=== PATIENT | male | born 1975 | race Caucasian/White ===

== ENCOUNTER 2020-04-15 23:02 | Emergency (ER) | payer OTHER ==
[~2020-04-15] VITALS: Ht 177.8 cm; Wt 88.9 kg
--- NOTE | 2020-04-15 23:49 | Emergency Department Note ---
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 Pt states that the frequent urge to urinate started earlier in the day, but that the abdominal pain became severe a few hours before presentation. He denies any dysuria, penile discharge, f/c/n/v. He states that he had a "normal BM" earlier this evening, without blood or mucous. He states that he had similar pain "year ago," that was thought to be due to a "stomach bug." Pt denies any history of kidney stones. He denies any travel or known sick contacts. 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: No Onset (how long ago): hour(s) (2.5) Location: mid-abdomen, and periumbilical area Quality: sharp, stabbing, tight Radiation: abdomen (pain is centrally located, and then radiates all over the abdomen) Severity: severe Onset quality: sudden Duration (how long): hour(s) (2.5 hours ago) Timing of current episode: constant Progression: waxing and waning Chronicity: new Relieving factors: none Exacerbating factors: none Associated symptoms: denies other symptoms (no cp, tightness, heaviness, or SOB.) Treatments prior to arrival: none Risk factors: ASCVD, Past Medical/Family History Physician Review I have reviewed the patient's past medical and family history. Any updates have been documented here. Past Medical History Recent Fever: No Clinical Suspicion of Infectio: No New/Unexplained Change in Ment: No Past Medical History: Hypertension, CAD (s/p stent placement x 1, at age 31 years. ), Hyperlipedemia Other Medical History: HIV - dx in 2002, well controlled on daily meds. Past Surgical History: None Social History Smoking Cessation: Current every day smoker Alcohol Use: Occasional Any Illegal Drug Use: Yes TB Exposure/Symptoms: No Physically hurt or threatened: No Family History Family history of heart diseas: Yes Other Any Pre-Existing Lines (PICC,: No Is patient up to date on immun: Yes Review of Systems Review of Systems Constitutional: no symptoms EENTM: no symptoms Cardiovascular: no symptoms Respiratory: no symptoms Gastrointestinal: abdominal pain, nausea Genitourinary: frequency Musculoskeletal: no symptoms Neurological: no symptoms Psychological: no symptoms Endocrine: no symptoms Hematological/Lymphatic: no symptoms Review of other systems All other systems reviewed and negative. Physical Exam Related Data Allergies: Coded Allergies: No Known Allergies (Unverified , 04/16/20) Vital signs reviewed: Yes Physical Exam CONSTITUTIONAL Constitutional: well-developed, well-nourished HENT HENT: normocephalic, atraumatic, oropharynx clear/moist, nose normal HENT L/R: left ext ear normal, right ext ear normal EYES Eyes: PERRL, conjunctivae normal NECK Neck: ROM normal PULMONARY Pulmonary: effort normal, breath sounds normal CARDIOVASCULAR Cardiovascular: regular rhythm, heart sounds normal, capillary refill normal, normal rate GASTROINTESTINAL Abdominal: soft, tender (diffuse, mild tenderness without rebound or guarding) GENITOURINARY Genitourinary: exam deferred SKIN Skin: warm, dry MUSCULOSKELETAL Musculoskeletal: ROM normal NEUROLOGICAL Neurological: alert, oriented x 3, no gross motor or sensory deficits PSYCHOLOGICAL Psychological: mood/affect normal, judgement normal Results Laboratory Lab results reviewed: Yes Laboratory comments CBC - nl except for WBC = 11.2 and platelets = 95 CMP - nl Liver profile - nl, including normal Amylase. UA - negative, except for moderate blood Imaging Imaging results reviewed: Yes Impressions [place] [id number] Patient Name: LEIGHA ROD MR #: [id number] : 1975 Age/Sex: 44/M Req #: [id number] Adm Physician: Ordered by: MARYSE LEO MD Report #: [id number] Location: [facility] Room/Bed: Procedure: [id number] HOPD/CT ABD/PEL WITH CONTRAST-HOPD Exam Date: 04/16/20 Exam Time: 50 REPORT STATUS: Signed EXAM: CT Abdomen and Pelvis WITH contrast INDICATION: Mid abdominal pain, nausea COMPARISON: None. TECHNIQUE: Abdomen and pelvis were scanned utilizing a multidetector helical scanner from the lung base to the pubic symphysis after administration of IV contrast. Coronal and sagittal reformations were obtained. Routine protocol was performed. Scan was performed when during portal venous phase. IV CONTRAST: 100 mL of Isovue 370 ORAL CONTRAST: None COMPLICATIONS: None RADIATION DOSE: Total DLP: 839 mGy*cm Estimated effective dose: (DLP x 0.015 x size factor) mSv CTDIvol has been reviewed. It is below the limits set by the Radiation Protocol Committee (RPC). Dose modulation, iterative reconstruction, and/or weight based adjustment of the mA/kV was utilized to reduce the radiation dose to as low as reasonably achievable. FINDINGS: LINES and TUBES: None. LOWER THORAX: Triple vessel coronary artery hyperdensities. HEPATOBILIARY: Hypodense liver relative to the spleen. No focal hepatic lesions. No biliary ductal dilation. GALLBLADDER: No radio-opaque stones or sludge. No wall thickening. SPLEEN: No splenomegaly. PANCREAS: No focal masses or ductal dilatation. ADRENALS: No adrenal nodules KIDNEYS/URETERS: Kidneys enhance symmetrically. No hydronephrosis. No cystic or solid mass lesions. Mild right ureterectasis, urothelial containing, and periureteral stranding. No stones. GI TRACT: No abnormal distention, wall thickening, or evidence of bowel obstruction. Mild gastric antral mucosal and duodenal mucosal hyperemia. Fluid-filled loops of nondilated small bowel in the lower abdomen. Appendix is normal. PELVIC ORGANS/BLADDER: Unremarkable. LYMPH NODES: No lymphadenopathy. VESSELS: Unremarkable. PERITONEUM / RETROPERITONEUM: No free air or fluid. BONES: Unremarkable. SOFT TISSUES: Unremarkable. IMPRESSION: 1. Subtle findings which can be seen with gastroenteritis. 2. Triple vessel coronary artery disease, query history of coronary stents. 3. Colonic diverticulosis without diverticulitis. 4. Hypodense liver suggestive of hepatic steatosis. Signed by: Jordon Burgos DO on 04/16/2020 1:19 AM Dictated By: JORDON BURGOS DO 8 Transcribed By: MANJINDER on 04/16/20118 COPY TO: MARYSE LEO MD~ Diagnostics Tests Diagnostic test(s) reviewed: Yes Assessment & Plan Assessment & Plan Final Impression: (1) GENERALIZED ABDOMINAL PAIN (2) OTHER MICROSCOPIC HEMATURIA (3) THROMBOCYTOPENIA, UNSPECIFIED (4) ASYMPTOMATIC HUMAN IMMUNODEFICIENCY VIRUS INFECTION STATUS (5) ESSENTIAL (PRIMARY) HYPERTENSION (6) ATHSCL HEART DISEASE OF [place] CORONARY ARTERY W/O ANG PCTRS Assessment & Plan - Discussed results of CT scan of abdomen, and pelvis, which suggested that patient might have "gastroenteritis," though he is not having any vomiting or diarrhea. Pt states that he was diagnosed with this previously, when he presented with similar pain. Explained that I would prescribe some Bentyl, to help with any colon spasms. - Explained to patient that the CT of abd/pelvis sarah aou Recommend a BLAND diet, for the next several days, avoiding any FRIED, FATTY, FAST or Spicy foods Follow-up with your PCP at [facility] regarding the following: - Referral to Cardiology, for further evaluation of possible "blockages in the coronary arteries" due to abnormality seen in chest, when CT abdomen/pelvis was performed.THIS IS VERY IMPORTANT. - Low platelets - to be further evaluated, if this is not chronic (pt mentions that his platelets are "always low.") - Microscopic blood in the urine. - Urinary symptoms, if they persist You may return to the ER if your symptoms worsen. Depart Disposition: HOME, SELF-residential Meds Active Scripts Dicyclomine Hcl (DICYCLOMINE HCL) 20 Mg Tablet, 1 TAB PO Q6H for abdominal pain, #30 TAB 0 Refills Prov:MARYSE LEO MD 04/16/20 MARYSE LEO MD April 15, 2020 23:49
[2020-04-15] MEDS ORDERED: ONDANSETRON HCL INJ 2MG/ML 2ML 2 MG/ML VIAL IV STA (23:57)
[2020-04-16] MEDS ORDERED: SODIUM CHLORIDE 0.9% 1000ML 1,000 ML IV SCH
[2020-04-16] MEDS ORDERED: ONDANSETRON HCL INJ 2MG/ML 2ML 2 MG/ML VIAL ONE (00:19)
[2020-04-16] MEDS ORDERED: SODIUM CHLORIDE 0.9% 50ML 50 ML ONE (00:29)
[2020-04-16] MEDS ORDERED: IOPAMIDOL 370 MG/ML 200 ML INFUS..BTL INJ ONE (00:30)
[2020-04-16] MEDS ORDERED: KETOROLAC TROMETHAMINE 30 MG/ML VIAL IV STA (00:33)
[2020-04-16] MEDS ORDERED: KETOROLAC TROMETHAMINE 30 MG/ML VIAL ONE (00:40)
--- NOTE | 2020-04-16 01:23 | Diagnostic Imaging Report ---
EXAM: CT Abdomen and Pelvis WITH contrast INDICATION: Mid abdominal pain, nausea COMPARISON: None. TECHNIQUE: Abdomen and pelvis were scanned utilizing a multidetector helical scanner from the lung base to the pubic symphysis after administration of IV contrast. Coronal and sagittal reformations were obtained. Routine protocol was performed. Scan was performed when during portal venous phase. IV CONTRAST: 100 mL of Isovue 370 ORAL CONTRAST: None COMPLICATIONS: None RADIATION DOSE: Total DLP: 839 mGy*cm Estimated effective dose: (DLP x 0.015 x size factor) mSv CTDIvol has been reviewed. It is below the limits set by the Radiation Protocol Committee (RPC). Dose modulation, iterative reconstruction, and/or weight based adjustment of the mA/kV was utilized to reduce the radiation dose to as low as reasonably achievable. FINDINGS: LINES and TUBES: None. LOWER THORAX: Triple vessel coronary artery hyperdensities. HEPATOBILIARY: Hypodense liver relative to the spleen. No focal hepatic lesions. No biliary ductal dilation. GALLBLADDER: No radio-opaque stones or sludge. No wall thickening. SPLEEN: No splenomegaly. PANCREAS: No focal masses or ductal dilatation. ADRENALS: No adrenal nodules KIDNEYS/URETERS: Kidneys enhance symmetrically. No hydronephrosis. No cystic or solid mass lesions. Mild right ureterectasis, urothelial containing, and periureteral stranding. No stones. GI TRACT: No abnormal distention, wall thickening, or evidence of bowel obstruction. Mild gastric antral mucosal and duodenal mucosal hyperemia. Fluid-filled loops of nondilated small bowel in the lower abdomen. Appendix is normal. PELVIC ORGANS/BLADDER: Unremarkable. LYMPH NODES: No lymphadenopathy. VESSELS: Unremarkable. PERITONEUM / RETROPERITONEUM: No free air or fluid. BONES: Unremarkable. SOFT TISSUES: Unremarkable. IMPRESSION: 1. Subtle findings which can be seen with gastroenteritis. 2. Triple vessel coronary artery disease, query history of coronary stents. 3. Colonic diverticulosis without diverticulitis. 4. Hypodense liver suggestive of hepatic steatosis. Signed by: Jordon Burgos DO on 04/16/2020 1:19 AM
[2020-04-16] MEDS ORDERED: DICYCLOMINE HCL 10 MG CAP ONE (01:43)
[2020-04-16] MEDS ORDERED: DICYCLOMINE HCL20 MG PO (02:04)
[2020-04-16] MEDS ORDERED: DICYCLOMINE HCL 10 MG CAP PO SCH (02:15)
== END 2020-04-16 02:20 | disposition home or self-care (01) ==
LOC: FSED 23:02
DX: R10.84 Generalized abdominal pain (principal); R31.29 Other microscopic hematuria; D69.6 Thrombocytopenia, unspecified; I10 Essential (primary) hypertension; I25.10 Atherosclerotic heart disease of native coronary artery without angina pectoris; Z21 Asymptomatic human immunodeficiency virus [HIV] infection status
CPT/HCPCS: 74177; 80053; 80076; 81003; 85025; 99284; J1885; J2405; Q9967

== ENCOUNTER 2021-07-15 21:34 | Emergency (ER) | payer OTHER ==
[~2021-07-15] VITALS: Ht 177.8 cm; Wt 90.3 kg
[~2021-07-15 21:34] MED LIST: DICYCLOMINE HCL20 MG PO
[2021-07-15] MEDS: FAMOTIDINE 20 MG/2 ML VIAL IV STA (23:50)
[2021-07-15] MEDS: DONNATAL/LIDOCAINE/MAALOX 30 ML SUSP PO ONE (23:50)
[2021-07-15] MEDS ORDERED: LIDOCAINE VISC 2% SOLN 15 ML UDC ONE (23:52)
[2021-07-15] MEDS ORDERED: BELLADONNA ALK/PHENOBARBITAL 5 ML UDC ONE (23:52)
[2021-07-15] MEDS ORDERED: MAGNESIUM/ALUMINUM/SIMETHICONE 30 ML UDC ONE (23:53)
[2021-07-15] MEDS ORDERED: FAMOTIDINE 20 MG/2 ML VIAL IV ONE (23:53)
[2021-07-16] MEDS: KETOROLAC TROMETHAMINE 30 MG/ML VIAL IV STA (00:46)
[2021-07-16] MEDS ORDERED: KETOROLAC TROMETHAMINE 30 MG/ML VIAL ONE (00:55)
[2021-07-16] MEDS ORDERED: FAMOTIDINE20 MG PO (02:13)
[2021-07-16 02:57] VITALS: BP 148/84
== END 2021-07-16 02:57 | disposition home or self-care (01) ==
LOC: FSED 22:10
DX: K29.70 Gastritis, unspecified, without bleeding (principal); K59.00 Constipation, unspecified; I10 Essential (primary) hypertension; Z21 Asymptomatic human immunodeficiency virus [HIV] infection status; I25.10 Atherosclerotic heart disease of native coronary artery without angina pectoris; Z95.5 Presence of coronary angioplasty implant and graft
CPT/HCPCS: 74022; 80053; 80076; 81003; 82553; 84484; 85025; 99284; J1885